=== PATIENT | male | born 1970 | race Caucasian/White ===

== ENCOUNTER 2024-02-03 21:08 | Emergency (ER) | payer MEDICAID ==
[2024-02-03] MEDS: Proparacaine 0.5% Ophth Soln 15 ML Bottle EYERT ONE (21:30)
== END 2024-02-03 21:45 | disposition home or self-care (01) ==
LOC: JP.ED 21:08
DX: T15.91XA Foreign body on external eye, part unspecified, right eye, initial encounter (principal); F17.210 Nicotine dependence, cigarettes, uncomplicated; W20.8XXA Other cause of strike by thrown, projected or falling object, initial encounter
CPT/HCPCS: 67938; 99283-25; A9270-GY